=== PATIENT | male | born 1985 | race Caucasian/White ===

== ENCOUNTER 2017-06-03 08:35 | Day surgery (SDC) | payer BC ==
[2017-06-03] MEDS ORDERED: SUBLIMAZE 100 MCG/2 ML IV ONE (08:36)
[2017-06-03] MEDS ORDERED: Versed 2 MG/2 ML Injection IV ONE (08:36)
[2017-06-03] MEDS ORDERED: DIPRIVAN 200 MG/20 ML IV ONE (08:36)
[2017-06-03] MEDS ORDERED: Lactated Ringers 1,000 ML IV SCH (09:30)
[2017-06-03] MEDS ORDERED: Sensorcaine 0.25% 10 ML ONE (09:40)
[2017-06-03] MEDS ORDERED: Lactated Ringers 1,000 ML IV ONE (09:40)
[2017-06-03] MEDS ORDERED: CEFAZOLIN 2 GM-D5W BAG** 2 GM/50 ML ML IV SCH (10:00)
--- NOTE | 2017-06-03 11:02 | HP ---
DATE OF SURGERY: 06/03/2017 HISTORY OF PRESENT ILLNESS: The patient is a 32 year-old who was hammering on some metal. A piece of metal flew into his thigh. He had pain and x-ray showed foreign body. We were asked to work him into the schedule as he has trouble walking. He has some pain in his knee at this point. PAST MEDICAL HISTORY: Some reflux, heartburn. He denied any other chronic illnesses. PAST SURGICAL HISTORY: Tonsillectomy. MEDICATIONS: Heartburn medications name of which he does not know. ALLERGIES: DOXYCYCLINE, AMOXICILLIN. FAMILY HISTORY: Negative in regards to this problem. SOCIAL HISTORY: No alcohol abuse. REVIEW OF SYSTEMS: Twelve systems reviewed per admission assessment. Pertinent for the pain in his right knee. PHYSICAL EXAMINATION: GENERAL: No acute distress. HEENT: Sclerae nonicteric. NECK: No JVD. CHEST: Equal excursion, nonlabored breathing. CVS: Regular rate and rhythm. ABDOMEN: Nondistended. EXTREMITIES: Pertinent for the right thigh some bruising and redness. He has got a small wound where foreign body went in. He has some tenderness in his knee but does have full range of motion. NEURO: Alert, oriented, moving extremities grossly symmetrically. IMPRESSION: Persistent knee pain, retained foreign body right thigh status post hammering metal at work. Otherwise I feel as the patient has persistent symptoms I feel he will benefit from exploration in OR with C-arm fluoroscopy, possible foreign body removal if identifiable. He understands general risk of bleeding or infection, risk of wound dehiscence possibly requiring packing, general risk of anesthesia, deep venous thrombosis, pulmonary embolism, or pneumonia. Possibility that aches, pains, burning, numbness possible senior living or chronic in nature. He also understands possibility that even if we remove the foreign body it may not improve his knee aches or pains, or if he fails to improve he may need to get opinion from orthopedic surgeon. He understands all the risks as well as general risk of anesthesia, deep venous thrombosis, pulmonary embolism or pneumonia but not limited to. Will proceed with OR time is available.
[2017-06-03] MEDS ORDERED: TORAdol 30 mg Injection ONE (12:41)
[2017-06-03] MEDS ORDERED: SUBLIMAZE 100 MCG/2 ML ONE (12:49)
[2017-06-03 14:01] VITALS: BP 130/82; PULSE 64; O2SAT 97
--- NOTE | 2017-06-03 14:44 | XRAY ---
Indication: Right femur foreign body removal. Intraoperative fluoroscopy was provided for 8 seconds. 4 digital spot images submitted for interpretation demonstrate successful foreign body removal. Correlate with intraoperative findings/report.
--- NOTE | 2017-06-03 17:05 | XRAY ---
Intraoperative fluoroscopy was provided for 8 seconds for foreign body removal of left femur.
--- NOTE | 2017-06-04 07:56 | OP ---
SURGERY DATE/TIME: 06/03/2017 1120 PREOPERATIVE DIAGNOSIS: Thigh and knee pain status post puncture wound foreign body, retained foreign body right thigh status post injury. POSTOPERATIVE DIAGNOSIS: Thigh and knee pain status post puncture wound foreign body, retained foreign body right thigh status post injury. Very deep submuscular foreign body. PROCEDURE: Exploration of right thigh with foreign body removal. SURGEON: Dr. Tony Sheets. RESEARCH CHEMIST: Delores Rodriguez, Medical Student III. ANESTHESIA: General. ESTIMATED BLOOD LOSS: Minimal. INDICATIONS: As noted above. Risks and benefits explained in detail and not limited to and consent obtained. DESCRIPTION OF PROCEDURE AND FINDINGS: The patient is taken to the operating room. General anesthesia introduced. Site had been confirmed with the patient in the preoperative holding area. The leg was prepped and draped in usual sterile fashion after waiting for the appropriate drapes to become available. Marking down around the old skin and subcutaneous tract was excised, allowing access down and the area is subfascial and below the muscle. Using the clamp and some forceps and other clamps careful dissection what appeared to be shredded muscle. It was very difficult to localize as it was deep and directly on the underlying nerve but every time we touched the foreign body the leg would like to contract. Again other than excising the skin and subcutaneous tract, no other tissue was cut. Blunt retractors retracting the muscle to either side finally reaching a point with some very quick spot films with C-arm as necessary finally reaching down to the level of the foreign body. It was finally able to be grasped with a clamp, pickups and pulled free and passed off. C-arm fluoroscopy confirmed the absence of the foreign body in the leg and then C-arm spot film was also taken of this foreign body in the specimen cup to be sent off. Copious amount of irrigation irrigating until clear. Again no deeper structures had been cut just gently retracted with blunt retractors. This had been quite deep. It was felt that this was not a sterile object and it was elected to go away and leave a packing strip down in the tract to be gradually advanced out over a few days. It was left in the deep area. The fascia was closed with 3-0 Vicryl superficially and deep subcu closed with 3-0 Vicryl. Skin closed with mir loosely with the packing strip left in between to be gradually advanced out over the next few days starting in a couple days. He tolerated the procedure well. It was a very difficult location deep and it took some time and required up to 8 seconds of C-arm using as minimal amount as possible. The patient tolerated the procedure well. There were no immediate complications. This was a difficult procedure given the depth and the foreign body had shredded some of the local muscle that it had gone through.
== END 2017-06-03 14:05 | disposition home or self-care (01) ==
LOC: SDC 08:35
PROVIDERS: ATTEND Surgery
PROC: 0KCQ0ZZ Extirpation of Matter from Right Upper Leg Muscle, Open Approach (ICD-10-PCS; principal; 2017-06-03)
DX: S71.141A Puncture wound with foreign body, right thigh, initial encounter (principal); M79.651 Pain in right thigh; M25.561 Pain in right knee; W45.8XXA Other foreign body or object entering through skin, initial encounter; W20.8XXA Other cause of strike by thrown, projected or falling object, initial encounter; Y93.89 Activity, other specified; Y92.64 Mine or pit as the place of occurrence of the external cause
CPT/HCPCS: 00400; 73552; 76000; J0690; J1885; J2250; J2704; J3010

== ENCOUNTER 2024-05-27 00:33 | Emergency (ER) | payer BC ==
[2024-05-27 00:51] VITALS: RESP 19; TEMP 97.6
--- NOTE | 2024-05-27 01:10 | ERPHSYRPT ---
- History of Present Illness Time Seen by Provider: 05/27/24 00:53 Source: patient Exam Limitations: no limitations Patient Subjective Stated Complaint: c/o bat bite Triage Nursing Assessment: pt brought to ED with c/o bat bite. patient stated he grabbed the bat out of the air and it bit him twice. patient stated that it pablo blood but he did not kill the bat. Bite perez unable to be seen at this time. vitals wnl, skin w/n/d, gait steady, patient doesn't appear to be in any distress at this time. Physician History: 39yo m w/ pmhx GERD presents via private vehicle for bat bite on the right hand. Pt reports he was in his garage when a bat flew in, he reports he grabbed the bat to try to remove it from the garage, at which time it bit him twice on the palmar aspect of the right hand - once over the 2nd mcp, once over thenar eminence. Pt reports he did not kill the bat, reports the bites did break skin, no active bleeding at time of exam. Pt denies any hx of rabies vaccination or immune globulin. Pt reports the bite occurred on 05/27/2024 at roughly 00:30. Timing/Duration: today Quality: painful Severity: mild Location: hands Possible Causes: other (bat bite) Associated Symptoms: No difficulty breathing, No fever, No headache, No numbness, No rash, No swelling/mass/lumps, No tingling Allergies/Adverse Reactions: doxycycline Allergy (Verified 05/27/24 00:51) Rash amoxicillin [From Augmentin] Adverse Reaction (Verified 05/27/24 00:51) Rash pt states this is an adverse reaction. not a true allergy clavulanic acid [From Augmentin] Adverse Reaction (Verified 05/27/24 00:51) Rash Home Medications: Esomeprazole Magnesium [Nexium 24Hr] 40 mg PO DAILY 06/03/17 [History] Hx Tetanus, Diphtheria Vaccination/Date Given: Yes Hx Influenza Vaccination/Date Given: No Hx Pneumococcal Vaccination/Date Given: No Travel Risk - International Travel Have you traveled outside of the country in past 3 weeks: No - Emerging Infectious Disease Are you exhibiting symptoms associated with any current EIDs: No - Review of Systems Constitutional: No Fever, No Chills, No Fatigue Eyes: No Symptoms Ears, Nose, & Throat: No Symptoms Respiratory: No Symptoms Cardiac: No Symptoms Abdominal/Gastrointestinal: No Symptoms Skin: Other (bat bite on right hand) - Past Medical History Pertinent Past Medical History: Yes Neurological History: No Pertinent History ENT History: No Pertinent History Cardiac History: No Pertinent History Respiratory History: No Pertinent History Endocrine Medical History: No Pertinent History Musculoskeletal History: Other GI Medical History: GERD, Other History: No Pertinent History Psycho-Social History: No Pertinent History Male Reproductive Disorders: No Pertinent History Other Medical History: multiple EGD's w/ dilitation w/ last EGD - Past Surgical History Past Surgical History: Yes Neuro Surgical History: No Pertinent History Cardiac: No Pertinent History Respiratory: No Pertinent History Gastrointestinal: No Pertinent History Genitourinary: No Pertinent History Musculoskeletal: No Pertinent History Male Surgical History: No Pertinent History Other Surgical History: multiple EGD's. - Social History Smoking Status: Former smoker Exposure to second hand smoke: No Drug Use: none - Social Determinants of Health Will the patient participate in the screening: Yes Do you worry about a steady place to live?: No Do you have any problems with any of the following?: No known problems In the past 12 months,have you had to go without utilities?: No Transportation Issues: No Has anyone in your support network made you feel unsafe?: No Have you or anyone in your house had to go without enough: No - Nursing Vital Signs Nursing Vital Signs: Initial Vital Signs Temperature 97.6 F 05/27/24 00:40 Pulse Rate 111 H 05/27/24 00:40 Respiratory Rate 19 05/27/24 00:40 Blood Pressure 127/76 05/27/24 00:40 O2 Sat by Pulse Oximetry 96 05/27/24 00:40 Pain Scale Pain Intensity 0 - Physical Exam General Appearance: no apparent distress, alert, other (intoxicated but cooperative) Eye Exam: PERRL/EOMI Ears, Nose, Throat Exam: normal ENT inspection Respiratory Exam: normal breath sounds, lungs clear, airway intact, No chest tenderness, No respiratory distress Cardiovascular Exam: regular rate/rhythm, normal heart sounds, normal peripheral pulses Gastrointestinal/Abdomen Exam: soft, No tenderness, No distention Extremity Exam: other (no obvious evidence of bite on right palmar aspect of hand, no blood or erythema present, no edema, full ROM intact at wrist and full flexion/extension ROM intact, neurovascularly intact distal to bite) Neurologic Exam: alert, oriented x 3, cooperative Skin Exam: normal color, warm, dry, No rash, No petechiae, No abrasion, No laceration, No pale SpO2 Interpretation: normal SpO2: 96 O2 Delivery: Room Air Ordered Tests: Medication Summary Discontinued Medications Generic Name Dose Route Start Last Admin Trade Name Emily PRN Reason Stop Dose Admin Rabies Immune Globulin 1,760 units 05/27/24 00:53 05/27/24 01:48 Rabies Immune Globulin/Pf 1,500 Units/5 Ml Vial IM 05/27/24 00:54 1,760 units ONCE ONE Administration Rabies Vaccine 2.5 units 05/27/24 00:53 05/27/24 01:51 Rabies Vac,Pf Chick-Emb Cell 2.5 Units Kit IM 05/27/24 00:54 2.5 units .ONCE ONE Administration - Progress Progress: re-examined Progress Note: 05/27/24 01:22 [facility] and [facility] guidelines recommend post exposure rabies prophylaxis for bat bite washed right hand thoroughly w/ soap/water and hibiclens HRIG ordered at 20IU/kg = 5.9ml dose to be given partially in hand surrounding bite sites, partially in right deltoid IM rabies vaccine ordered to be given IM in left deltoid pt monitored for 30 min following vaccinations - vitals remained stable, pt tolerated well, discussed returned precautions for allergic reaction repeat rabies vaccine doses to be given on 05/29/2024, 06/02/2024, 06/09/2024 call outpatient infusion center at [facility] to schedule ahead plan for discharge home follow above vaccination schedule to complete series return to ER if you develop: clenched jaw, difficulty breathing, change in mental status, vision changes, chest pain, hallucinations, seizures, severe anxiety 05/27/24 02:06 Counseled pt/family regarding: need for follow-up Medical Desision Making - Diagnostic Testing Diagnostic test were ordered, analyzed, and reviewed by me: No - Risk of complications Low Risk: Low risk of morbidity from additional dx testing or treatment - Departure Departure Disposition: Home Clinical Impression: Bat bite wound, Need for post exposure prophylaxis for rabies Condition: Stable Critical Care Time: No Referrals: LINN CANALES MD [Primary Care Provider] - Follow up/PCP as directed Additional Instructions: HRIG ordered at 20IU/kg = 5.9ml dose to be given partially in hand surrounding bite sites, partially in right deltoid IM rabies vaccine ordered, given IM in left deltoid repeat rabies vaccine doses to be given on 05/29/2024, 06/02/2024, 06/09/2024 call outpatient infusion center at [facility] to schedule ahead plan for discharge home follow above vaccination schedule to complete series return to ER if you develop: clenched jaw, difficulty breathing, change in mental status, vision changes, chest pain, hallucinations, seizures, severe anxiety
[2024-05-27] MEDS: HYPERRAB 300 UNIT/ML 5 ML VIAL IM ONE (01:48)
[2024-05-27] MEDS: Rabavert 2.5 UNITS IM ONE (01:51)
[2024-05-27 02:10] VITALS: BP 132/73; PULSE 91
[2024-05-27 02:11] VITALS: O2SAT 96
== END 2024-05-27 02:16 | disposition home or self-care (01) ==
LOC: ED 00:33
DX: S60.470A Other superficial bite of right index finger, initial encounter (principal); S60.571A Other superficial bite of hand of right hand, initial encounter; W55.81XA Bitten by other mammals, initial encounter; Z20.3 Contact with and (suspected) exposure to rabies; Z23 Encounter for immunization
CPT/HCPCS: 90375; 90471; 90675; 96372; 99283